=== PATIENT | male | born 1950 | race Caucasian/White ===

== ENCOUNTER 2022-07-19 16:16 | Emergency (ER) | payer MEDICARE, SELFPAY ==
[2022-07-19 16:28] VITALS: BP 131/76; PULSE 99; RESP 16; TEMP 37.1; O2SAT 97; BMI 22.9
--- NOTE | 2022-07-19 17:27 | XRR_ITS ---
PROCEDURE INFORMATION: Exam: XR Abdomen Exam date and time: 07/19/2022 5:44 PM Age: 72 years old Clinical indication: Abdominal pain; Generalized; Patient HX: Constipation TECHNIQUE: Imaging protocol: Radiologic exam of the abdomen. Views: Frontal supine view of the abdomen. 1 View. COMPARISON: CR XR chest 1V portable [id number] 07/19/2022 5:41 PM FINDINGS: Gastrointestinal tract: Large amount of stool throughout the colon to the rectum. No small bowel obstruction. Bones/joints: Degenerative changes of the hip. Other findings: No visible pneumoperitoneum. XR/XR abdomen 1V* [id number] IMPRESSION: Large stool burden in the colon and rectum is consistent with constipation.
--- NOTE | 2022-07-19 17:27 | XRR_ITS ---
PROCEDURE INFORMATION: Exam: XR Chest Exam date and time: 07/19/2022 5:41 PM Age: 72 years old Clinical indication: Shortness of breath; Additional info: Chf TECHNIQUE: Imaging protocol: Radiologic exam of the chest. Views: 1 view. COMPARISON: No relevant prior studies available. FINDINGS: Lungs: Minimal atelectasis in the right lung base. The left lung is clear. No consolidation. Pleural spaces: Unremarkable. No pleural effusion. No pneumothorax. Heart/Mediastinum: Unremarkable. No cardiomegaly. Bones/joints: Unremarkable. XR/XR chest 1V portable [id number] IMPRESSION: No acute findings.
--- NOTE | 2022-07-19 17:47 | ED_ITS ---
HPI - Extremity Problem General: Chief complaint: Extremity Injury, Lower Stated complaint: left foot issue Time Seen by Provider: 07/19/22 16:58 History of Present Illness: Patient presents to the ER with and home health career technical counselor. Patient was discharged from a prison in [place] yesterday and thought it would be easier to come to the ER to arrange follow-up for multiple issues and quicker than finding a primary care provider. Patient was in the prison for approximately 1 month where he was treated with antibiotics and wound care for osteomyelitis and gangrene of the second third and fourth toes on the left foot. Patient is a diabetic with neuropathy and has a history of noncompliance. Patient and caregiver states that he needs follow- up with wound care/podiatry, urology for urinary retention and home health. They did provide records from the prison that stated he did complete a course of antibiotics for the osteomyelitis. did have pictures of his foot originally which was significantly worse than it looks today. MD Complaint: other (Nonhealing diabetic wound on left foot, urinary retention, osteomyelitis,) Onset (ago): month(s) (Most of these have been going on for months.) Location: left (Foot) Relieving factors: nothing Exacerbating factors: nothing Associated symptoms: Reports no associated symptoms; Deny chest pain, fever(s) or rash Review of Systems General: Reports: 10 or more systems reviewed and unremarkable except in HPI and below Const: Denies: fever(s) or chills Eyes: Denies: change in vision ENMT: Denies: throat pain or odynophagia Card: Reports: swelling of feet/ankles; Denies: chest pain, palpitations or irregular heart rhythm Resp: Denies: dyspnea, productive cough or non-productive cough GI: Reports: constipation; Denies: nausea or vomiting : Reports: difficulty urinating Musc: Denies: neck pain or back pain Skin/Breast: Denies: rash or pruritus Neuro: Denies: headache(s) Psych: Denies: anxiety or depression Endo: Denies: polyuria or polydipsia Fabrizio/Lymph: Denies: easy bruising or easy bleeding Physical Exam Const: COMMON NORMALS: no acute distress, average body habitus, patient oriented x3, no limitations, alert and well nourished HENMT: COMMON NORMALS: normocephalic, atraumatic, hearing grossly normal bilaterally, external ears normal, Normal external nose present and moist oral mucous membranes HEAD & SCALP: normocephalic and atraumatic NOSE: Normal external nose present EXTERNAL EAR: Yes external ears normal Eye: COMMON NORMALS: Equal, round and reactive pupils present, EOMs intact bilaterally, conjunctivae normal and no scleral icterus CONJUNCTIVA: Yes conjunctivae normal PUPIL: Yes Equal, round and reactive pupils present Neck/C-Spine: COMMON NORMALS: full ROM, no lymphadenopathy, supple, no meningeal signs, no JVD and Thyroid normal THYROID: Thyroid normal Chest: COMMONS NORMALS: normal inspection of the chest and normal palpation of entire chest wall Resp: EFFORT & INSPECTION: Yes able to speak in complete sentences and Yes symmetric chest movement AUSCULTATION: diminished lung sounds bilateral Cardio: COMMON NORMALS: no JVD, regular rate, regular rhythm, S1 normal heart sound present and S2 normal heart sound present RATE: regular rate RHYTHM: regular rhythm HEART SOUNDS: S1 normal heart sound present and S2 normal heart sound present GI: COMMON NORMALS: Soft to palpation INSPECTION: Yes abdominal distension PALPATION: Yes Soft to palpation and Yes Firmness to palpation present (GI) : COMMON NORMALS: Yes no CVA tenderness BLADDER/KIDNEY EXAM: Yes no CVA tenderness Back/Pelvis: COMMON NORMALS: no CVA tenderness Extremity: NARRATIVE EXTREMITY EXAM: 1+ pitting edema to the right lower extremity, 2+ pitting edema to the left lower extremity both up to the knee, upon removal of bandages on the left toes showed healing wounds to the second third and fourth digits with no erythema, foul odor, drainage noted Neuro: COMMON NORMALS: patient oriented x3, CN's II-XII intact bilaterally, moves all extremities and no focal motor deficits SENSORIUM/ORIENTATION: Yes alert MENINGEAL SIGNS: Yes no meningeal signs Psych: COMMON NORMALS: mental status grossly normal, Normal thought process present, cooperative, normal affect and speech normal SPEECH: Yes normal speech THOUGHT PROCESS: Normal thought process present Course Vital Signs: Vital signs: Vital Signs Temperature 98.7 F 07/19/22 16:28 Pulse Rate 99 07/19/22 16:28 Respiratory Rate 16 07/19/22 16:28 Blood Pressure 131/76 07/19/22 16:28 Pulse Oximetry 97 07/19/22 16:28 Oxygen Delivery Me thod 07/19/22 16:28 MDM - Extremity (Nontraumatic) Medical Decision Making Patient presents to the ER with complaints of needing to be set up podiatry, wound care, urology, and wants his wound looked at as well as the swelling. Patient just got discharged from the prison and [place] yesterday and was discharged without any of these things in place. Patient has a history of osteomyelitis and gangrene on his toes 2 3 and 4 on his left foot. Patient has a history of CHF. Patient has history of noncompliance. Patient, his , and caregiver were talked to in great detail about all these as well as his lab work which essentially showed acute kidney injury with a creatinine of 3.0 and upon placement of the Winn approximately 4000 mL of urine was obtained. Referral consult was placed for urology, podiatry/wound care. Patient will be placed on a small dose of Lasix and potassium to help with diuresing. Patient is to follow-up with primary care or someone to have his lung labs redrawn in approximately 1 week. Differential Diagnosis Likely lower extremity edema; Unlikely herpes zoster, gout, cellulitis, superficial thrombophlebitis, deep venous thrombosis of upper extremity or deep vein thrombosis of lower extremity Lab Data 07/19/22 17:39 07/19/22 17:39 Radiology Impressions Abdomen X-Ray 07/19/22 17:27 IMPRESSION: Large stool burden in the colon and rectum is consistent with constipation. Chest X-Ray 07/19/22 17:27 IMPRESSION: No acute findings. Laboratory Results WBC 5.0 10^3/uL (4.0-10.0) 07/19/22 17:39 RBC 2.70 10^6/uL (4.1-5.3) L 07/19/22 17:39 Hgb 7.7 g/dL (11.7-16.6) L 07/19/22 17:39 Hct 24.8 % (42.0-52.0) L 07/19/22 17:39 MCV 91.9 fl (80-94) 07/19/22 17:39 MCH 28.5 pg (28.0-34.0) 07/19/22 17:39 MCHC 31.0 g/dL (30.0-36.0) 07/19/22 17:39 RDW 14.7 % (12.1-15.1) 07/19/22 17:39 Plt Count 174 10^3/cmm (130-400) 07/19/22 17:39 MPV 9.1 fL (7.4-10.4) 07/19/22 17:39 Neut % (Auto) 62.5 % 07/19/22 17:39 Lymph % (Auto) 25.5 % 07/19/22 17:39 [facility] % (Auto) 7.6 % 07/19/22 17:39 Eos % (Auto) 3.4 % 07/19/22 17:39 Baso % (Auto) 0.4 % 07/19/22 17:39 Neut # (Auto) 3.12 10^3/uL (1.8-7.7) 07/19/22 17:39 Lymph # (Auto) 1.3 10^3/uL (0.8-4.8) 07/19/22 17:39 [facility] # (Auto) 0.4 10^3/uL (0.2-0.9) 07/19/22 17:39 Eos # (Auto) 0.2 10^3/uL (0.0-0.8) 07/19/22 17:39 Baso # (Auto) 0.0 10^3/uL (0.0-0.1) 07/19/22 17:39 Nucleated RBC % (auto) 0 % 07/19/22 17:39 Nucleated RBCs # 0.0 /100WBC 07/19/22 17:39 ESR 9 mm/hr (0-10) 07/19/22 17:39 Sodium 145 mmol/L (136-145) 07/19/22 17:39 Potassium 4.8 mmol/L (3.5-5.1) 07/19/22 17:39 Chloride 109 mmol/L (98-107) H 07/19/22 17:39 Carbon Dioxide 22 mmol/L (22-29) 07/19/22 17:39 Anion Gap 18.8 (5-19) 07/19/22 17:39 BUN 43 mg/dL (8-23) H 07/19/22 17:39 Creatinine 3.0 mg/dL (0.7-1.2) H 07/19/22 17:39 GFR Calculation Not Reportable 07/19/22 17:39 Glucose 159 mg/dL (65-115) H 07/19/22 17:39 Calculated Osmolality 314 mOsm/kg (285-295) H 07/19/22 17:39 Calcium 8.9 mg/dL (8.5-10.5) 07/19/22 17:39 Magnesium 2.0 mg/dL (1.7-2.3) 07/19/22 17:39 Total Bilirubin 0.3 mg/dL (0.15-1.2) 07/19/22 17:39 AST 8 U/L (0-40) 07/19/22 17:39 ALT < 5 U/L (0-41) 07/19/22 17:39 Alkaline Phosphatase 86 U/L (40-130) 07/19/22 17:39 C-React Prot High Sens 1.490 mg/dL (0.0-0.3) H 07/19/22 17:39 NT-Pro-B Natriuret Pep 3681 pg/mL (0-125) H 07/19/22 17:39 Total Protein 6.9 g/dL (6.6-8.7) 07/19/22 17:39 Albumin 3.9 g/dL (3.5-5.2) 07/19/22 17:39 Globulin 3.0 g/dL (1.3-4.6) 07/19/22 17:39 Urine Color Yellow (Yellow) 07/19/22 18:16 Urine Appearance Clear (CLEAR) 07/19/22 18:16 Urine pH 6 (5-7) 07/19/22 18:16 Ur Specific [place] 1.010 (1.005-1.030) 07/19/22 18:16 Urine Protein Neg (Negative) 07/19/22 18:16 Urine Glucose (UA) Norm (Normal) 07/19/22 18:16 Urine Ketones Negative (Negative) 07/19/22 18:16 Urine Blood Neg (Negative) 07/19/22 18:16 Urine Nitrate Negative (Negative) 07/19/22 18:16 Urine Bilirubin Neg (Negative) 07/19/22 18:16 Urine Urobilinogen Neg mg/dL (Negative) 07/19/22 18:16 Ur Leukocyte Esterase Negative (Negative) 07/19/22 18:16 Discharge Plan Discharge Patient Disposition: Home Clinical Impression: Acute urinary retention, Anemia, Acute kidney insufficiency, Congestive heart failure, Diabetic foot ulcer, History of osteomyelitis Condition: Stable Prescriptions: New furosemide [Lasix] 20 mg tablet 20 mg PO DAILY Qty: 5 0RF potassium chloride 20 mEq packet 20 meq PO DAILY Qty: 5 0RF Discharge Orders: Discharge ED (Routine); Ordered 07/19/22 Ordered By: Ruben Demarco Discharge Diet: Low Salt Discharge Activity: Increase activity as tolerated Patient Instructions: Diabetic Foot Ulcers (ED), Congestive Heart Failure, Urinary Retention in Men (ED), Constipation - Adult, Anemia, Diabetic Kidney Disease (ED) Activity Restrictions/Additional Instructions: Referrals have been given to case management for urology for urinary retention, podiatry/wound care for diabetic foot ulcer with history of osteomyelitis. Follow-up with your primary care practitioner within the next 7 to 10 days for recheck of your blood work. Coding Level of Care Code ED Director Business Travel for Kaylee Bailey
[2022-07-19 18:07] LABS: Basophils % 0.4 %; Eosinophils # 0.2 10^3/uL (0.0-0.8); Eosinophils % 3.4 %; Hematocrit 24.8 % (42.0-52.0); Hemoglobin 7.7 g/dL (11.7-16.6); Lymphocytes # 1.3 10^3/uL (0.8-4.8); Lymphocytes % 25.5 %; Mean Corpuscular Hemoglobin 28.5 pg (28.0-34.0); Mean Corpuscular Volume 91.9 fl (80-94); Mean Platelet Volume 9.1 fL (7.4-10.4); Monocytes # 0.4 10^3/uL (0.2-0.9); Monocytes % 7.6 %; Neutrophils # 3.12 10^3/uL (1.8-7.7); Neutrophils % 62.5 %; Nucleated Red Blood Cells % 0 %; Platelet Count 174 10^3/cmm (130-400); Red Cell Distribution Width 14.7 % (12.1-15.1)
[2022-07-19 18:10] LABS: Erythrocyte Sedimentation Rate 9 mm/hr (0-10)
[2022-07-19 18:29] LABS: Alanine Aminotransferase < 5 U/L (0-41); Albumin Level 3.9 g/dL (3.5-5.2); Alkaline Phosphatase 86 U/L (40-130); Anion Gap 18.8 (5-19); Aspartate Amino Transferase 8 U/L (0-40); Blood Urea Nitrogen 43 mg/dL (8-23); Calcium 8.9 mg/dL (8.5-10.5); Carbon Dioxide 22 mmol/L (22-29); Chloride 109 mmol/L (98-107); Glucose 159 mg/dL (65-115); NT Pro B Type Natriuretic Pept 3681 pg/mL (0-125); Osmolality Calculated 314 mOsm/kg (285-295); Potassium 4.8 mmol/L (3.5-5.1); Sodium 145 mmol/L (136-145); Total Bilirubin 0.3 mg/dL (0.15-1.2); Total Protein 6.9 g/dL (6.6-8.7)
[2022-07-19 18:29] LABS: Add Urine Microscopic? NO; Charge for UA Resulting for Rev
[2022-07-19 18:37] LABS: Bilirubin Urine Neg (Negative); Blood Urine Neg (Negative); Glucose Urine UA Norm (Normal); Ketones Urine Negative (Negative); Nitrate Urine Negative (Negative); Protein Urine Neg (Negative); Urine Appearance Clear (CLEAR); Urine Color Yellow (Yellow); pH Urine 6 (5-7)
[2022-07-19 18:38] LABS: Leukocyte Esterase Urine Negative (Negative); Urobilinogen Urine Neg (Negative)
[2022-07-19 19:43] VITALS: BP 128/77; PULSE 93; RESP 18; O2SAT 99
--- NOTE | 2022-07-20 09:52 | DCPLANNER ---
Addendum entered by Maribel Peters 07/22/22 07:51: Patient had a follow up appointment scheduled with podiatry - patient did attend appointment Addendum entered by Maribel Peters 07/20/22 15:24: process development manager had message from the ortho clinic regarding follow up appointment: pts Vm is full//called contact Jaden and left a vm for pt to call back and schedule with Dr. Madhuri MUNOZ Original Note: process development manager had message to schedule a follow up appointment for patient with ortho. process development manager sent patients information to the front office staff at ortho. Patients information will be printed and reviewed. Clinic will call patient with appointment information.
--- NOTE | 2022-07-20 10:07 | DCPLANNER ---
Addendum entered by Maribel Peters 08/11/22 09:02: Patient had a follow up appointment scheduled with urology - patient did not attend appointment. Addendum entered by Maribel Peters 07/22/22 07:50: Patient has a follow up appointment scheduled for Monday, August 10, 2022 at 3:[address] Fregoso at urology. Original Note: high risk case manager had message to schedule a follow up appointment for patient with urology. high risk case manager sent patients information to the front office staff at urology. Patients information will be printed and reviewed. Clinic will call patient with appointment information.
--- NOTE | 2022-07-27 12:47 | DCPLANNER ---
manager review called patient due to no primary care physician - test case developer spoke with patients , she stated that she was driving, would call test case developer back.
== END 2022-07-19 20:15 | disposition home or self-care (01) ==
PROVIDERS: Emergency Provider Emergency Medicine
DX: R33.9 Retention of urine, unspecified (principal); D64.9 Anemia, unspecified; N28.9 Disorder of kidney and ureter, unspecified; I11.0 Hypertensive heart disease with heart failure; I50.9 Heart failure, unspecified; E11.621 Type 2 diabetes mellitus with foot ulcer
CPT/HCPCS: 36415; 51702; 71045; 74018; 80053; 81003; 83735; 83880; 85025; 85651; 86141; 99284

== ENCOUNTER → 2022-07-20 15:32 | Outpatient (BNVA) | payer MEDICARE, SELFPAY | PROVIDERS: Visit Provider Podiatrist Foot & Ankle Surgery | DX: E11.621 Type 2 diabetes mellitus with foot ulcer (principal); L97.522 Non-pressure chronic ulcer of other part of left foot with fat layer exposed; Z87.39 Personal history of other diseases of the musculoskeletal system and connective tissue; E11.42 Type 2 diabetes mellitus with diabetic polyneuropathy; G62.9 Polyneuropathy, unspecified | CPT/HCPCS: 11042; 73630; 99203 ==

== ENCOUNTER → 2022-07-26 08:54 | Outpatient (BNVA) | payer MEDICARE, SELFPAY | PROVIDERS: Visit Provider Podiatrist Foot & Ankle Surgery | DX: E11.621 Type 2 diabetes mellitus with foot ulcer (principal); L97.521 Non-pressure chronic ulcer of other part of left foot limited to breakdown of skin; Z87.39 Personal history of other diseases of the musculoskeletal system and connective tissue; E11.42 Type 2 diabetes mellitus with diabetic polyneuropathy; G62.9 Polyneuropathy, unspecified | CPT/HCPCS: 11042 ==